=== PATIENT | male | born 1980 ===

== ENCOUNTER 2019-11-04 16:17 | Emergency (ER) | payer OTHER ==
[~2019-11-04] VITALS: Ht 167.6 cm; Wt 97.6 kg
--- NOTE | 2019-11-04 16:56 | NUR ---
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
--- NOTE | 2019-11-04 17:23 | NUR ---
RECEIVED REPORT FROM KAMALJIT MORRISON CURRENTLY BEING TRANSFERRED TO 18 [facility] [facility].
[2019-11-04 18:06] VITALS: BP 118/81
--- NOTE | 2019-11-04 18:21 | NUR ---
Patient given discharge instructions and they have confirmed that they understand the instructions. Patient ambulatory with steady gait.
== END 2019-11-04 18:39 | disposition home or self-care (01) ==
LOC: ED 18:25
DX: T75.4XXA Electrocution, initial encounter (principal); R07.89 Other chest pain; R20.0 Anesthesia of skin; R94.31 Abnormal electrocardiogram [ECG] [EKG]; W86.8XXA Exposure to other electric current, initial encounter; Y93.89 Activity, other specified; Y92.69 Other specified industrial and construction area as the place of occurrence of the external cause; Y99.0 Civilian activity done for income or pay
CPT/HCPCS: 71045; 93005; 99283